=== PATIENT | female | born 1965 | race American Indian/Alaskan Native ===

== ENCOUNTER 2017-11-18 07:35 | Emergency (ER) | payer OTHER ==
[2017-11-18 07:58] VITALS: BMI 22.1
[2017-11-18] MEDS ORDERED: Sodium Chloride 0.9% 1,000 ML IV STA ×3 (08:05→09:22)
--- NOTE | 2017-11-18 08:26 | ED PDOC ---
Arrival/HPI - General Chief Complaint: GI Problem Time Seen by Provider: 11/18/17 08:03 Historian: Patient - History of Present Illness Narrative History of Present Illness (Text): 11/18/17 08:17 Patient is 52F with a past medical history of HTN comes to the ED with a 2 days history of abdominal pain, diarrhea and vomiting. She states that the Vomiting is green in color and denies any blood. Denies any blood in the diarrhea. She has not taken anything for the pain. She describes the pain as burning. It does not radiate. It has been constant since its onset. Patient admits to using heroine 2 days ago. She has a prior episode of this that occurred after the last time she used heroine. Time/Duration: < week Symptom Onset: Gradual Symptom Course: Worsening Quality: Cramping, Burning Activities at Onset: Rest Context: Sitting Past Medical History - Cardiac Hx Cardiac Disorders: Yes Hx Hypertension: Yes - Pulmonary Hx Respiratory Disorders: No - Neurological Hx Neurological Disorder: No - HEENT Hx HEENT Disorder: No - Renal Hx Renal Disorder: No - Endocrine/Metabolic Hx Endocrine Disorders: No - Hematological/Oncological Hx Blood Disorders: No - Integumentary Hx Dermatological Disorder: No - Musculoskeletal/Rheumatological Hx Falls: No - Gastrointestinal Hx Gastrointestinal Disorders: Yes Hx Gastritis: Yes - Genitourinary/Gynecological Hx Genitourinary Disorders: No - Psychiatric Hx Psychophysiologic Disorder: Yes Hx Anxiety: Yes Hx Depression: Yes Hx Substance Use: Yes - Anesthesia Hx Anesthesia: No Hx Anesthesia Reactions: No - Suicidal Assessment Feels Threatened In Home Enviroment: No Family/Social History Family/Social History: Unknown Family HX Smoking Status: Heavy Smoker > 10 Cigarettes Daily Hx Alcohol Use: Yes Frequency of alcohol use: Socially Hx Substance Use: Yes Substance used: cocaine & heroine Allergies/Home Meds Allergies/Adverse Reactions: Allergies No Known Allergies Allergy (Verified 11/18/17 07:56) Home Medications: Home Meds Medication Instructions Recorded Confirmed hydroCHLOROthiazide [Hydrodiuril] 02/02/17 Review of Systems - Review of Systems Constitutional: Normal Eyes: Normal ENT: Normal Respiratory: Normal Cardiovascular: Normal Gastrointestinal: Abdominal Pain, Diarrhea, Nausea, Vomiting Genitourinary Female: Normal Musculoskeletal: Normal Skin: Normal Neurological: Normal Endocrine: Normal Hemo/Lymphatic: Normal Psychiatric: Normal Physical Exam Vital Signs Reviewed: Yes Vital Signs Temp Pulse Resp BP Pulse Ox 11/18/17 11:25 100 H 18 187/150 H 99 11/18/17 10:38 100 H 193/103 H 11/18/17 10:00 100 H 18 193/103 H 99 11/18/17 07:57 98.3 F 95 H 19 170/104 H 99 Temperature: Afebrile Blood Pressure: Hypertensive Pulse: Tachycardic Respiratory Rate: Normal Appearance: Positive for: Well-Appearing, Non-Toxic, Comfortable Pain Distress: None Mental Status: Positive for: Alert and Oriented X 3 - Systems Exam Head: Present: Atraumatic, Normocephalic Pupils: Present: PERRL Extroacular Muscles: Present: EOMI Conjunctiva: Present: Normal Mouth: Present: Moist Mucous Membranes Neck: Present: Normal Range of Motion Respiratory/Chest: Present: Clear to Auscultation, Good Air Exchange. No: Respiratory Distress, Accessory Muscle Use Cardiovascular: Present: Regular Rate and Rhythm, Normal S1, S2. No: Murmurs Abdomen: Present: Tenderness, Normal Bowel Sounds. No: Distention, Peritoneal Signs Upper Extremity: Present: Normal Inspection. No: Cyanosis, Edema Lower Extremity: Present: Normal Inspection. No: Edema Neurological: Present: GCS=15, CN II-XII Intact, Speech Normal Skin: Present: Warm, Dry, Normal Color. No: Rashes Psychiatric: Present: Alert, Oriented x 3, Normal Insight, Normal Concentration Medical Decision Making ED Course and Treatment: 11/18/17 11:27 patient presents likely w/abdominal pain, vomiting, dirrhea 2/2 to heroine w/d - zofran, loperamide, fluid - CT a/p as pain was constant and did not resolve - negative - clonidine and HCTZ for HTN 11/18/17 11:44 - pain resolved - repeat CMP 11/18/17 11:48 - f/u with nephro for elevated Renal function 11/18/17 12:48 - Patient refuses to take potassium replacement - Lab Interpretations Lab Results: 11/18/17 08:15 11/18/17 12:00 Lab Results 11/18/17 12:00: Sodium 137, Potassium 3.2 L, Chloride 100, Carbon Dioxide 25, Anion Gap 16, BUN 27 H, Creatinine 1.0, Est GFR ( Amer) > 60, Est GFR ( Non-Af Amer) 58, Random Glucose 113 H, Calcium 9.3, Total Bilirubin 0.7, AST 35 , ALT 31, Alkaline Phosphatase 75, Total Protein 7.8, Albumin 4.4, Globulin 3.5 , Albumin/Globulin Ratio 1.3 11/18/17 08:15: Sodium 138, Potassium 3.3 L, Chloride 94 L, Carbon Dioxide 26, Anion Gap 21 H, BUN 36 H, Creatinine 1.7 H, Est GFR ( Amer) 38, Est GFR ( Non-Af Amer) 31, Random Glucose 119 H, Calcium 10.4, Total Bilirubin 0.8, AST 39 H, ALT 35, Alkaline Phosphatase 84, Total Protein 9.1 H, Albumin 5.1 H, Globulin 4.0, Albumin/Globulin Ratio 1.3, Lipase 32 11/18/17 08:15: APTT 36.0 11/18/17 08:15: WBC 10.3, RBC 6.75 H, Hgb 16.1 H, Hct 48.3 H, MCV 71.6 L, MCH 23.9 L, MCHC 33.3, RDW 13.9, Plt Count 214, MPV 11.2 H, Gran % 67.0, Lymph % ( Auto) 23.0, [place] % (Auto) 9.8 H, Eos % (Auto) 0.1 L, Baso % (Auto) 0.1, Gran # 6.92 H, Lymph # (Auto) 2.4, [place] # (Auto) 1.0 H, Eos # (Auto) 0.0, Baso # (Auto ) 0.01 11/18/17 08:13: Urine Opiates Screen Positive H, Urine Methadone Screen Negative , Ur Barbiturates Screen Negative, Ur Phencyclidine Scrn Negative, Ur Amphetamines Screen Negative, U Benzodiazepines Scrn Negative, U Oth Cocaine Metabols Positive H, U Cannabinoids Screen Negative 11/18/17 08:06: Urine Color Yellow, Urine Appearance Slight-cloudy, Urine pH 6.0 , Ur Specific [place] >= 1.030, Urine Protein 100 H, Urine Glucose (UA) Negative , Urine Ketones Negative, Urine Blood Small H, Urine Nitrate Negative, Urine Bilirubin Negative, Urine Urobilinogen 0.2, Ur Leukocyte Esterase Negative, Urine RBC 0 - 2, Urine WBC 1 - 3, Ur Epithelial Cells 10 - 12, Urine Bacteria Few - RAD Interpretation Radiology Orders: 11/18/17 09:22 ABD & PELVIS W/O PO OR IV CONT [CT] Stat - Medication Orders Current Medication Orders: Discontinued Medications Clonidine HCl (Catapres) 0.2 mg PO STAT STA Stop: 11/18/17 10:23 Last Admin: 11/18/17 10:38 Dose: 0.2 mg MAR Pulse and Blood Pressure Document 11/18/17 10:38 LM (Rec: 11/18/17 10:38 [facility] [place] [id number]) Pulse Pulse Rate (60-90) 100 Blood Pressure Blood Pressure (100/60-150/90) 193/103 Famotidine (Pepcid) 20 mg IVP STAT STA Stop: 11/18/17 08:06 Last Admin: 11/18/17 08:25 Dose: 20 mg IVP Administration Document 11/18/17 08:25 LM (Rec: 11/18/17 08:25 LM [id number]) Charges for Administration # of IVP Administrations 1 Hydrochlorothiazide (Hydrodiuril) 25 mg PO STAT STA Stop: 11/18/17 11:10 Last Admin: 11/18/17 11:20 Dose: 25 mg Sodium Chloride (Sodium Chloride 0.9%) 1,000 mls @ 1,000 mls/hr IV .Q1H STA Stop: 11/18/17 09:04 Last Admin: 11/18/17 08:25 Dose: 1,000 mls/hr eMAR Start Stop Document 11/18/17 08:25 [facility] (Rec: 11/18/17 08:28 LM [id number]) Intravenous Solution Start Date 11/18/17 Start Time 08:28 End Date 11/18/17 End time 09:30 Total Infusion Time 62 Sodium Chloride (Sodium Chloride 0.9%) 1,000 mls @ 999 mls/hr IV .Q1H1M STA Stop: 11/18/17 10:06 Last Admin: 11/18/17 09:33 Dose: 999 mls/hr eMAR Start Stop Document 11/18/17 09:33 [facility] (Rec: 11/18/17 09:33 LM [id number]) Intravenous Solution Start Date 11/18/17 Start Time 09:33 End Date 11/18/17 End time 10:35 Total Infusion Time 62 Sodium Chloride (Sodium Chloride 0.9%) 1,000 mls @ 999 mls/hr IV .Q1H1M STA Stop: 11/18/17 10:22 Last Admin: 11/18/17 10:42 Dose: 999 mls/hr eMAR Start Stop Document 11/18/17 10:42 [facility] (Rec: 11/18/17 10:42 [facility] [id number]) Intravenous Solution Start Date 11/18/17 Start Time 10:42 End Date 11/18/17 End time 11:45 Total Infusion Time 63 Ketorolac Tromethamine (Toradol) 30 mg IVP STAT STA Stop: 11/18/17 09:24 Last Admin: 11/18/17 09:33 Dose: 30 mg MAR Pain Assessment Document 11/18/17 09:33 [facility] (Rec: 11/18/17 09:34 [facility] [id number]) Pain Reassessment Is this a pain reassessment? Yes Sleep Is patient sleeping during reassessment? No Presence of Pain Presence of Pain Yes Pain Scale Used Pain Scale Used Numeric Location Left, Right or Bilateral Bilateral Upper or Lower Lower Pain Location Body Site Abdomen Description Intensity of Pain at present 9 IVP Administration Document 11/18/17 09:33 [facility] (Rec: 11/18/17 09:34 [facility] [id number]) Charges for Administration # of IVP Administrations 1 Loperamide HCl (Imodium) 2 mg PO STAT STA Stop: 11/18/17 08:16 Last Admin: 11/18/17 08:41 Dose: 2 mg Lorazepam (Ativan) 1 mg IVP ONCE ONE PRN Reason: Protocol Stop: 11/18/17 10:23 Last Admin: 11/18/17 10:37 Dose: 1 mg IVP Administration Document 11/18/17 10:37 [facility] (Rec: 11/18/17 10:37 [facility] [id number]) Charges for Administration # of IVP Administrations 1 Ondansetron HCl (Zofran Inj) 4 mg IVP STAT STA Stop: 11/18/17 08:16 Last Admin: 11/18/17 08:36 Dose: 4 mg IVP Administration Document 11/18/17 08:36 [facility] (Rec: 11/18/17 08:36 [facility] [id number]) Charges for Administration # of IVP Administrations 1 Potassium Chloride (K-Dur 20 Meq Er Tab) 40 meq PO STAT STA Stop: 11/18/17 09:06 Last Admin: 11/18/17 09:34 Dose: 40 meq Potassium Chloride (Potassium Chloride Oral Soln) 40 meq PO STAT STA Stop: 11/18/17 12:38 Last Admin: 11/18/17 12:45 Dose: 40 meq - PA / CLINICAL PRODUCT SPECIALIST / Resident Statement / has reviewed & agrees with the documentation as recorded. / has examined the patient and agrees with the treatment plan. Disposition/Present on Arrival - Present on Arrival Any Indicators Present on Arrival: No History of DVT/PE: No History of Uncontrolled Diabetes: No Urinary Catheter: No History of Decub. Ulcer: No History Surgical Site Infection Following: None - Disposition Have Diagnosis and Disposition been Completed?: Yes Diagnosis: Heroin withdrawal Disposition: HOME/ ROUTINE Disposition Time: 11:55 Patient Problems: Current Active Problems Problem Status Onset Heroin withdrawal Acute Condition: STABLE Prescriptions: Loperamide [Imodium] 2 mg PO BID PRN #60 cap PRN Reason: Diarrhea Ondansetron ODT [Zofran ODT] 4 mg PO Q4H PRN #30 odt PRN Reason: Nausea/Vomiting Forms: [employer] (Martiniquais)
[2017-11-18 08:33] LABS: BASO # 0.01 K/mm3 (0.0-2.0); BASO % 0.1 % (0.0-3.0); EOS % 0.1 % (1.5-5.0); GRAN # 6.92 (1.4-6.5); HEMOGLOBIN 16.1 g/dL (12.0-16.0); LYMPH # 2.4 (1.2-3.4); MEAN CELL VOLUME 71.6 fl (80.0-105.0); MEAN CORPUSCULAR HEMOGLOBIN 23.9 pg (25.0-35.0); MEAN CORPUSCULAR HGB CONC 33.3 g/dl (31.0-37.0); MEAN PLATELET VOLUME 11.2 fl (7.0-11.0); MONO % 9.8 % (1.0-6.0); RBC 6.75 10^6/uL (3.5-6.1); RED CELL DISTRIBUTION WIDTH 13.9 % (11.5-14.5); WHITE BLOOD COUNT 10.3 10^3/ul (4.5-11.0)
[2017-11-18 08:34] LABS: URINE BILIRUBIN NEGATIVE (NEGATIVE); URINE BLOOD SMALL (NEGATIVE); URINE GLUCOSE (UA) NEGATIVE (NEGATIVE); URINE LEUKOCYTE ESTERASE NEGATIVE Leu/uL (NEGATIVE); URINE PROTEIN 100 mg/dL (<30 mg/dL); URINE UROBILINOGEN 0.2 E.U./dL (<1 E.U./dL)
[2017-11-18 08:36] LABS: URINE APPEARANCE SLIGHT-CLOUDY (CLEAR); URINE COLOR YELLOW (YELLOW)
[2017-11-18 08:43] LABS: URINE RBC 0 - 2 /hpf (0-2)
[2017-11-18 08:44] LABS: ALB/GLOB RATIO 1.3 (1.1-1.8); ALBUMIN 5.1 g/dL (3.0-4.8); CALCIUM 10.4 mg/dL (8.4-10.5)
[2017-11-18 08:44] LABS: URINE BACTERIA FEW (NEG)
[2017-11-18 08:53] LABS: BARBITURATES, UR NEGATIVE (NEGATIVE)
[2017-11-18 08:54] LABS: BENZODIAZEPINES, UR NEGATIVE (NEGATIVE); OPIATES, UR POSITIVE (NEGATIVE); PHENCYCLIDINE, UR NEGATIVE (NEGATIVE)
[2017-11-18] MEDS ORDERED: Potassium Chloride 20 mEq ER Tab PO STA ×2 (09:05→12:35)
[2017-11-18 10:43] VITALS: PULSE 100; RESP 18
--- NOTE | 2017-11-18 10:57 | CT ---
PROCEDURE: CT Abdomen and Pelvis without intravenous contrast HISTORY: Abdominal pain, nausea, vomiting COMPARISON: None. TECHNIQUE: Without contrast. Contrast Dose: Radiation dose: Total exam DLP = Total exam DLP = 256 mGy-cm. This CT exam was performed using one or more of the following dose reduction techniques: Automated exposure control, adjustment of the mA and/or kV according to patient size, and/or use of iterative reconstruction technique. FINDINGS: LOWER THORAX: Unremarkable. LIVER: Unremarkable. No gross lesion or ductal dilatation. GALLBLADDER AND BILE DUCTS: Unremarkable. PANCREAS: Unremarkable. No gross lesion or ductal dilatation. SPLEEN: Unremarkable. ADRENALS: Unremarkable. No mass. KIDNEYS AND URETERS: Unremarkable. No hydronephrosis. No solid mass. VASCULATURE: Unremarkable. No aortic aneurysm. BOWEL: Unremarkable. No obstruction. No gross mural thickening. APPENDIX: Unremarkable. Normal appendix. PERITONEUM: Unremarkable. No free fluid. No free air. LYMPH NODES: Unremarkable. No enlarged lymph nodes. BLADDER: Unremarkable. REPRODUCTIVE: Unremarkable. BONES: No acute fracture. OTHER FINDINGS: None. IMPRESSION: No acute findings
[2017-11-18 12:23] LABS: ALB/GLOB RATIO 1.3 (1.1-1.8); ALBUMIN 4.4 g/dL (3.0-4.8); ALT/SGPT 31 U/L (7-56); AST/SGOT 35 U/L (14-36); BLOOD UREA NITROGEN 27 mg/dL (7-21); CALCIUM 9.3 mg/dL (8.4-10.5); GFR AFRICAN-AMERICAN > 60; GFR NON-AFRICAN AMERICAN 58
[2017-11-18] MEDS ORDERED: Potassium Chloride 40 mEq/30 ml LIQ UD PO STA (12:37)
[2017-11-18 12:48] VITALS: BP 182/86; TEMP 98.1; O2SAT 100
== END 2017-11-18 12:54 | disposition home or self-care (01) ==
LOC: ED 07:35
DX: F11.23 Opioid dependence with withdrawal (principal); F17.210 Nicotine dependence, cigarettes, uncomplicated; I10 Essential (primary) hypertension
CPT/HCPCS: 74176; 80053; 80324; 80345; 80346; 80349; 80353; 80358; 80361; 81001; 83690; 83992; 85025; 85730; 87086; 96361; 96374; 96375; 99284; J1885; J2060; J2405; J3480; J7040

== ENCOUNTER 2018-01-08 17:43 | Emergency (ER) | payer MEDICAID, OTHER ==
[2018-01-08 17:43] VITALS: BMI 22.1
[2018-01-08] MEDS ORDERED: DiphenhydrAMINE 50 mg/ml Inj IM STA (17:50)
[2018-01-08] MEDS ORDERED: Sodium Chloride 0.9% 1,000 ML IV STA (17:54)
[2018-01-08 17:56] VITALS: RESP 18; TEMP 98.3
--- NOTE | 2018-01-08 18:18 | ED PDOC ---
Arrival/HPI - General Chief Complaint: Abdominal Pain Time Seen by Provider: 01/08/18 17:44 Historian: Patient - History of Present Illness Narrative History of Present Illness (Text): 01/08/18 18:18 A 52 year old female was brought in by EMS to the emergency department complaining of epigastric abdominal pain that began 05:00 this morning. Reports vomiting every time she eats. Patient does not admit any medical history, no medications. Patient with tobacco smelling. Patient denies any other complaints at this time. Symptom Onset: Sudden Symptom Course: Unchanged Activities at Onset: Rest Context: Home Past Medical History - Provider Review Nursing Documentation Reviewed: Yes - Infectious Disease Hx of Infectious Diseases: None - Cardiac Hx Cardiac Disorders: Yes Hx Hypertension: Yes - Pulmonary Hx Respiratory Disorders: No - Neurological Hx Neurological Disorder: No - HEENT Hx HEENT Disorder: No - Renal Hx Renal Disorder: No - Endocrine/Metabolic Hx Endocrine Disorders: No - Hematological/Oncological Hx Blood Disorders: No - Integumentary Hx Dermatological Disorder: No - Musculoskeletal/Rheumatological Hx Falls: No - Gastrointestinal Hx Gastrointestinal Disorders: Yes Hx Gastritis: Yes - Genitourinary/Gynecological Hx Genitourinary Disorders: No - Psychiatric Hx Psychophysiologic Disorder: Yes Hx Anxiety: Yes Hx Depression: Yes Hx Substance Use: Yes - Anesthesia Hx Anesthesia: No Hx Anesthesia Reactions: No - Suicidal Assessment Feels Threatened In Home Enviroment: No Family/Social History - Physician Review Nursing Documentation Reviewed: Yes Family/Social History: No Known Family HX Smoking Status: Heavy Smoker > 10 Cigarettes Daily Hx Alcohol Use: Yes Hx Substance Use: Yes Substance used: cocaine & heroine Allergies/Home Meds Allergies/Adverse Reactions: Allergies No Known Allergies Allergy (Verified 01/08/18 17:47) Home Medications: Home Meds Medication Instructions Recorded Confirmed hydroCHLOROthiazide [Hydrodiuril] 02/02/17 Review of Systems - Physician Review All systems were reviewed & negative as marked: Yes - Review of Systems Constitutional: absent: Fevers Gastrointestinal: Abdominal Pain, Vomiting Physical Exam Vital Signs Reviewed: Yes Vital Signs Temp Pulse Resp BP Pulse Ox 01/08/18 17:55 98.3 F 96 H 18 148/86 100 Temperature: Afebrile Blood Pressure: Normal Pulse: Regular Respiratory Rate: Normal Appearance: Positive for: Well-Appearing, Non-Toxic, Comfortable Pain Distress: None Mental Status: Positive for: Alert and Oriented X 3 - Systems Exam Head: Present: Atraumatic, Normocephalic Pupils: Present: PERRL Extroacular Muscles: Present: EOMI Conjunctiva: Present: Normal Mouth: Present: Moist Mucous Membranes Neck: Present: Normal Range of Motion Respiratory/Chest: Present: Clear to Auscultation, Good Air Exchange. No: Respiratory Distress, Accessory Muscle Use Cardiovascular: Present: Regular Rate and Rhythm, Normal S1, S2. No: Murmurs Abdomen: No: Tenderness, Distention, Peritoneal Signs Back: Present: Normal Inspection Upper Extremity: Present: Normal Inspection. No: Cyanosis, Edema Lower Extremity: Present: Normal Inspection. No: Edema Neurological: Present: GCS=15, CN II-XII Intact, Speech Normal Skin: Present: Warm, Dry, Normal Color. No: Rashes Psychiatric: Present: Alert, Oriented x 3, Normal Insight, Normal Concentration Medical Decision Making ED Course and Treatment: 01/08/18 18:16 Impression: A 52 year old female with epigastric abdominal pain. Plan: -- labs -- Urinalysis -- Morphine, IV fluids, Benadryl -- Reassess and disposition Prior Visits: Notes and results from previous visits were reviewed. Patient was last seen in the emergency department on 11/18/17 for evaluation of abdominal pain, diarrhea and vomiting. Progress Notes: CT Abdomen and Pelvis With Intravenous Contrast FINDINGS: Lung bases: Mild atelectatic change/parenchymal scarring is visualized at the lung bases. ABDOMEN: Liver: A few small hypodense lesions are visualized within the right hepatic lobe, which are too small to characterize further. Gallbladder and bile ducts: No calcified stones. No ductal dilation. Pancreas: There is atrophy of the pancreas. Spleen: No splenomegaly. Adrenals: No mass. Kidneys and ureters: No hydronephrosis. No solid mass Stomach and bowel: There is elongation of the stomach, similar to the prior study. Evaluation of bowel is limited by the absence of oral contrast. No obstruction. PELVIS: Appendix: The appendix is poorly visualized. Bladder: No mass. Reproductive: Within the left side of perineum, there is a 3.3 x 1.9 cm cystic collection of fluid, consistent with a Bartholin's gland cyst. In retrospect, this has mildly increased in size. The uterus is retroverted. ABDOMEN and PELVIS: Intraperitoneal space: No free air. Bones/joints: There is a disc protrusion at L5-S1 causing mild narrowing of the thecal sac. Vasculature: There is atherosclerotic calcification of the abdominal aorta and iliac arteries. No abdominal aortic aneurysm. Lymph nodes: Small intrapelvic lymph nodes are identified, without significant lymphadenopathy. No significant retroperitoneal lymphadenopathy. IMPRESSION: 1. Within the left side of perineum, there is a 3.3 x 1.9 cm cystic collection of fluid, consistent with a Bartholin's gland cyst. 2. There is a disc protrusion at L5-S1 causing mild narrowing of the thecal sac. 3. A few small hypodense lesions are visualized within the right hepatic lobe, which are too small to characterize further. 4. Additional CT findings described above. Dictated and Authenticated by: Austyn Avila MD 01/08/2018 9:06 PM Eastern Time ([place] & [place]) - Lab Interpretations Lab Results: 01/08/18 18:25 01/08/18 18:25 Lab Results 01/08/18 18:25: Alcohol, Quantitative < 10 01/08/18 18:25: Urine Opiates Screen Positive H, Urine Methadone Screen Negative , Ur Barbiturates Screen Negative, Ur Phencyclidine Scrn Negative, Ur Amphetamines Screen Negative, U Benzodiazepines Scrn Negative, U Oth Cocaine Metabols Positive H, U Cannabinoids Screen Negative 01/08/18 18:25: Sodium 145, Potassium 3.1 L, Chloride 96 L, Carbon Dioxide 27, Anion Gap 24 H, BUN 15, Creatinine 0.6 L, Est GFR ( Amer) > 60, Est GFR ( Non-Af Amer) > 60, Random Glucose 132 H, Calcium 10.5, Total Bilirubin 0.7, AST 34, ALT 28, Alkaline Phosphatase 80, Total Protein 9.8 H, Albumin 5.6 H, Globulin 4.3, Albumin/Globulin Ratio 1.3, Lipase 14 L 01/08/18 18:25: Urine Color Yellow, Urine Appearance Clear, Urine pH 8.0, Ur Specific [place] 1.020, Urine Protein >=300 H, Urine Glucose (UA) 100 H, Urine Ketones Trace H, Urine Blood Trace-intact H, Urine Nitrate Negative, Urine Bilirubin Negative, Urine Urobilinogen 1.0 H, Ur Leukocyte Esterase Negative, Urine RBC 0 - 2, Urine WBC 1 - 3, Ur Epithelial Cells 1 - 3, Urine Bacteria Few 05/18/18 18:25: PT 12.2, INR 1.07 01/08/18 18:25: WBC 6.3 D, RBC 6.60 H, Hgb 15.8, Hct 46.7, MCV 70.8 L, MCH 23.9 L, MCHC 33.8, RDW 14.4, Plt Count 184, Gran % 84.2 H, Lymph % (Auto) 12.9 L , [place] % (Auto) 2.7, Eos % (Auto) 0.0 L, Baso % (Auto) 0.2, Gran # 5.31, Lymph # (Auto) 0.8 L, [place] # (Auto) 0.2, Eos # (Auto) 0.0, Baso # (Auto) 0.01 I have reviewed the lab results: Yes - RAD Interpretation Radiology Orders: 01/08/18 18:45 ABD & PELVIS IV CONTRAST ONLY [CT] Stat - Medication Orders Current Medication Orders: Discontinued Medications Diphenhydramine HCl (Benadryl) 100 mg IM STAT STA Stop: 01/08/18 17:51 Last Admin: 01/08/18 18:32 Dose: 100 mg IM Administration Charges Document 01/08/18 18:32 SS (Rec: 01/08/18 18:32 SS [id number]) Injection Site MAR Injection Site Left Deltoid Charges for Administration # of IM Administrations 1 Sodium Chloride (Sodium Chloride 0.9%) 1,000 mls @ 999 mls/hr IV .Q1H1M STA Stop: 01/08/18 18:54 Last Admin: 01/08/18 18:32 Dose: 999 mls/hr eMAR Start Stop Document 01/08/18 18:32 SS (Rec: 01/08/18 18:32 SS [id number]) Intravenous Solution Start Date 01/08/18 Start Time 18:32 Morphine Sulfate (Morphine) 10 mg IM STAT STA Stop: 01/08/18 17:51 Last Admin: 01/08/18 18:22 Dose: 10 mg MAR Pain Assessment Document 01/08/18 18:22 SS (Rec: 01/08/18 18:32 SS [id number]) Pain Reassessment Is this a pain reassessment? No Sleep Is patient sleeping during reassessment? No Presence of Pain Presence of Pain Yes Pain Scale Used Pain Scale Used Numeric Location Pain Location Body Site Generalized Description Intensity of Pain at present 9 Pain Behavior Moaning Crying Restlessness Screaming VS Changes IM Administration Charges Document 01/08/18 18:22 SS (Rec: 01/08/18 18:32 SS [id number]) Injection Site MAR Injection Site Right Deltoid Charges for Administration # of IM Administrations 1 Ondansetron HCl (Zofran Odt) 4 mg PO STAT STA Stop: 01/08/18 20:54 Last Admin: 01/08/18 21:10 Dose: 4 mg - Scribe Statement The provider has reviewed the documentation as recorded by the Danielle Juárez Provider Scribe Attestation: All medical record entries made by the Scribe were at my direction and personally dictated by me. I have reviewed the chart and agree that the record accurately reflects my personal performance of the history, physical exam, medical decision making, and the department course for this patient. I have also personally directed, reviewed, and agree with the discharge instructions and disposition. Disposition/Present on Arrival - Present on Arrival Any Indicators Present on Arrival: No History of DVT/PE: No History of Uncontrolled Diabetes: No Urinary Catheter: No History of Decub. Ulcer: No History Surgical Site Infection Following: None - Disposition Have Diagnosis and Disposition been Completed?: Yes Diagnosis: Abdominal pain, Polysubstance abuse, Narcotic abuse, Cocaine abuse Disposition: HOME/ ROUTINE Disposition Time: 21:14 Patient Plan: Discharge Condition: FAIR Discharge Instructions (ExitCare): Drug Abuse and Drug Addiction (DC) Additional Instructions: Valender - You are withdrawing from narcotics and the cocain is not helping you in any way. I have given you what I can to take the edge off of your symptoms but I do not have anything else to offer you here. Your symptoms should calm down tonight and they will escalate in 24 hours if you do not use again. Please take better care of yourself and work your way to being clean. [place]- Dr. Buck Logan Forms: [employer] (Spanish)
[2018-01-08 18:50] LABS: BASO # 0.01 K/mm3 (0.0-2.0); BASO % 0.2 % (0.0-3.0); GRAN # 5.31 (1.4-6.5); GRAN % 84.2 % (50.0-68.0); HEMOGLOBIN 15.8 g/dL (12.0-16.0); LYMPH # 0.8 (1.2-3.4); LYMPH % 12.9 % (22.0-35.0); MEAN CELL VOLUME 70.8 fl (80.0-105.0); MEAN CORPUSCULAR HEMOGLOBIN 23.9 pg (25.0-35.0); MEAN CORPUSCULAR HGB CONC 33.8 g/dl (31.0-37.0); MONO # 0.2 (0.1-0.6); MONO % 2.7 % (1.0-6.0); PLATELET COUNT 184 10^3/uL (120.0-450.0); RED CELL DISTRIBUTION WIDTH 14.4 % (11.5-14.5); URINE BILIRUBIN NEGATIVE (NEGATIVE); URINE BLOOD TRACE-INTACT (NEGATIVE); URINE GLUCOSE (UA) 100 mg/dL (NEGATIVE); URINE LEUKOCYTE ESTERASE NEGATIVE Leu/uL (NEGATIVE); URINE PROTEIN >=300 mg/dL (<30 mg/dL); WHITE BLOOD COUNT 6.3 10^3/ul (4.5-11.0)
[2018-01-08 18:51] LABS: URINE APPEARANCE CLEAR (CLEAR); URINE COLOR YELLOW (YELLOW)
[2018-01-08 18:57] LABS: INR 1.07 (0.93-1.08); PROTHROMBIN TIME 12.2 SECONDS (9.4-12.5)
[2018-01-08 18:59] LABS: ALB/GLOB RATIO 1.3 (1.1-1.8); ALBUMIN 5.6 g/dL (3.0-4.8); ALT/SGPT 28 U/L (7-56); AST/SGOT 34 U/L (14-36); BLOOD UREA NITROGEN 15 mg/dL (7-21); CALCIUM 10.5 mg/dL (8.4-10.5); GFR AFRICAN-AMERICAN > 60; GFR NON-AFRICAN AMERICAN > 60; LIPASE 14 U/L (23-300)
[2018-01-08] MEDS ORDERED: Iohexol 350 MG/100 ML VIAL ONE (19:06)
[2018-01-08 19:10] LABS: URINE BACTERIA FEW (NEG); URINE RBC 0 - 2 /hpf (0-2)
[2018-01-08 19:27] LABS: BARBITURATES, UR NEGATIVE (NEGATIVE); BENZODIAZEPINES, UR NEGATIVE (NEGATIVE); OPIATES, UR POSITIVE (NEGATIVE); PHENCYCLIDINE, UR NEGATIVE (NEGATIVE)
--- NOTE | 2018-01-08 21:06 | CT ---
EXAM: CT Abdomen and Pelvis With Intravenous Contrast EXAM DATE/TIME: 01/08/2018 6:45 PM CLINICAL HISTORY: The patient age is 52 years old and is female; Pain; Abdominal pain; Acute Facility exam id and description: Ct abdpelciv abd pelvis iv contrast only TECHNIQUE: Axial computed tomography images of the abdomen and pelvis with intravenous contrast. All CT scans at this facility use one or more dose reduction techniques, viz.: automated exposure control; ma/kV adjustment per patient size (including targeted exams where dose is matched to indication; i.e. head); or iterative reconstruction technique. Coronal and sagittal reformatted images were created and reviewed. CONTRAST: 100 mL of OMNI 350 administered intravenously. COMPARISON: CT - ABD PELVIS W/O PO OR IV CONT 2017-11-18 10:02 FINDINGS: Lung bases: Mild atelectatic change/parenchymal scarring is visualized at the lung bases. ABDOMEN: Liver: A few small hypodense lesions are visualized within the right hepatic lobe, which are too small to characterize further. Gallbladder and bile ducts: No calcified stones. No ductal dilation. Pancreas: There is atrophy of the pancreas. Spleen: No splenomegaly. Adrenals: No mass. Kidneys and ureters: No hydronephrosis. No solid mass. Stomach and bowel: There is elongation of the stomach, similar to the prior study. Evaluation of bowel is limited by the absence of oral contrast. No obstruction. PELVIS: Appendix: The appendix is poorly visualized. Bladder: No mass. Reproductive: Within the left side of perineum, there is a 3.3 x 1.9 cm cystic collection of fluid, consistent with a Bartholin's gland cyst. In retrospect, this has mildly increased in size. The uterus is retroverted. ABDOMEN and PELVIS: Intraperitoneal space: No free air. Bones/joints: There is a disc protrusion at L5-S1 causing mild narrowing of the thecal sac. Vasculature: There is atherosclerotic calcification of the abdominal aorta and iliac arteries. No abdominal aortic aneurysm. Lymph nodes: Small intrapelvic lymph nodes are identified, without significant lymphadenopathy. No significant retroperitoneal lymphadenopathy. IMPRESSION: 1. Within the left side of perineum, there is a 3.3 x 1.9 cm cystic collection of fluid, consistent with a Bartholin's gland cyst. 2. There is a disc protrusion at L5-S1 causing mild narrowing of the thecal sac. 3. A few small hypodense lesions are visualized within the right hepatic lobe, which are too small to characterize further. 4. Additional CT findings described above.
[2018-01-08] MEDS ORDERED: Oxycodone/Acetaminophen 5/325 mg Tab PO STA (21:13)
[2018-01-08 21:38] VITALS: BP 189/110
[2018-01-08 21:40] VITALS: O2SAT 99
[2018-01-08 21:42] VITALS: PULSE 80
== END 2018-01-08 21:42 | disposition home or self-care (01) ==
LOC: ED 17:43
DX: F14.10 Cocaine abuse, uncomplicated (principal); F19.10 Other psychoactive substance abuse, uncomplicated; R10.9 Unspecified abdominal pain; I10 Essential (primary) hypertension; F17.210 Nicotine dependence, cigarettes, uncomplicated
CPT/HCPCS: 74177; 80053; 80320; 80324; 80345; 80346; 80349; 80353; 80358; 80361; 81001; 81025; 83690; 83992; 85025; 85610; 96372; 99284; J1200; J2270; J7040; Q9967